=== PATIENT | female | born 1950 | race Two or more races ===

== ENCOUNTER 2020-03-24 18:34 | Emergency (ER) | payer MEDICAID ==
[~2020-03-24] VITALS: Ht 157.5 cm; Wt 70.3 kg
[2020-03-24 18:38] VITALS: BP_SYST 164
[2020-03-24 21:00] VITALS: BP_SYST 164
== END 2020-03-24 21:00 | disposition home or self-care (01) ==
LOC: SED 18:34
DX: S80.12XA Contusion of left lower leg, initial encounter (principal); E11.9 Type 2 diabetes mellitus without complications; W22.8XXA Striking against or struck by other objects, initial encounter; Y93.89 Activity, other specified; Y92.89 Other specified places as the place of occurrence of the external cause; Y99.8 Other external cause status
CPT/HCPCS: 73590-TC; 99283